=== PATIENT | female | born 1965 | race Caucasian/White ===

== ENCOUNTER 2017-10-22 08:27 | Day surgery (SDC) | payer OTHER ==
[~2017-10-22] VITALS: Ht 165.1 cm; Wt 99.8 kg
[~2017-10-22 08:27] MED LIST: AUGMENTIN875 MG PO; CALTRATE 600600 MG PO; CLINDAMYCIN HC300 MG PO; LANTUS 10100 UNITS/ SC; LANTUS 3 M100 UNITS1 SC; LEVAQUIN750 MG PO; METAMUCIL POWD798 GM PO; MOTRIN800 MG PO; MULTIPLE VITAM1 EACH PO; NAPROSYN500 MG PO; NORCO 5/3251 TABLET PO; NORCO 7.5/321 TABLET PO; NOVOLOG 10100 UNITS/ SC; NUCYNTA50 MG PO; PROBIOTIC1 EAC1 PO; VITAMIN D31000 UNIT PO; ZOFRAN4 MG PO
[2017-10-22] MEDS ORDERED: BEE POLLEN550 MG PO (09:13)
[2017-10-22 09:21] VITALS: BP 135/60
[2017-10-22 13:07] VITALS: BP 152/69
[2017-10-22 13:44] VITALS: BP 140/78
== END 2017-10-22 13:50 | disposition home or self-care (01) ==
LOC: SDC 08:27
PROVIDERS: Internal Medicine
DX: H33.42 Traction detachment of retina, left eye (principal); E11.311 Type 2 diabetes mellitus with unspecified diabetic retinopathy with macular edema; E11.21 Type 2 diabetes mellitus with diabetic nephropathy; N28.9 Disorder of kidney and ureter, unspecified; Z87.891 Personal history of nicotine dependence; Z79.4 Long term (current) use of insulin
CPT/HCPCS: 81025; 82948; J0690; J1100; J2250; J2405; J3010; J3300

== ENCOUNTER 2018-04-08 07:36 | Day surgery (SDC) | payer OTHER ==
[~2018-04-08] VITALS: Ht 165.1 cm; Wt 97.5 kg
[~2018-04-08 07:36] MED LIST changes: +BEE POLLEN550 MG PO
[2018-04-08 08:31] VITALS: BP 141/64
[2018-04-08 11:56] VITALS: BP 150/72
[2018-04-08 12:21] VITALS: BP 160/70
== END 2018-04-08 12:30 | disposition home or self-care (01) ==
LOC: SDC 07:36
PROVIDERS: Internal Medicine
PROC: 08B53ZZ Excision of Left Vitreous, Percutaneous Approach (ICD-10-PCS; principal; 2018-04-08)
PROC: 08QF3ZZ Repair Left Retina, Percutaneous Approach (ICD-10-PCS; principal; 2018-04-08)
DX: E11.3592 Type 2 diabetes mellitus with proliferative diabetic retinopathy without macular edema, left eye (principal); H43.12 Vitreous hemorrhage, left eye; Z79.4 Long term (current) use of insulin; Z87.891 Personal history of nicotine dependence; Z88.5 Allergy status to narcotic agent
CPT/HCPCS: 82948; J0690; J1170; J2405; J3010; J3300